=== PATIENT | female | born 1945 | race Asian ===

== ENCOUNTER 2018-12-01 09:35 | Emergency (ER) | payer OTHER ==
[~2018-12-01] VITALS: Ht 167.6 cm; Wt 82.6 kg
[2018-12-01 09:39] VITALS: BP 165/81; PULSE 85; RESP 17; Ht 167.6 cm; Wt 82.6 kg
[2018-12-01] MEDS ORDERED: DIPHTH/TET/ACEL PERTUSS (ADULT) 0.5 ML VIAL IM* ONE (10:00)
--- NOTE | 2018-12-01 10:28 | ERD ---
ER Documentation Chief Complaint Chief Complaint LAC ON RIGHT LATTER-DAY S/P FALL FROM BED THIS AM, NO KO HPI 73-year-old female presents with laceration to the right side of her forehead that occurred today when she actually fell from her bed and hit her head. No loss of consciousness. No vomiting. She takes aspirin but no other blood thinners. Unsure last tetanus vaccination. Pain is mild and she has mild dizziness. ROS All systems reviewed and are negative except as per history of present illness. Allergies Allergies: Coded Allergies: No Known Allergy (Unverified , 12/01/18) PMhx/Soc History of Surgery: Yes (Goiter removal, right breast sx, Hysterectomy) Anesthesia Reaction: No Hx Cardiac Disorders: Yes (HTN, Hyperlipidemia) Hx Alcohol Use: No Hx Substance Use: No Hx Tobacco Use: No Smoking Status: Never smoker FmHx Family History: No diabetes Physical Exam Vitals Vital Signs Date Temp Pulse Resp B/P (MAP) Pulse Ox O2 O2 Flow FiO2 Time Delivery Rate 12/01/18 97.6 85 17 165/81 98 09:39 (109) Physical Exam INITIAL VITAL SIGNS: Reviewed by me GENERAL: Awake, alert and oriented x 4, well appearing, nontoxic, speaking in full sentences. No acute distress HEAD: Atraumatic NECK: Supple. No masses. Full range of motion. No meningismus. No midline tenderness. EYES: EOMI. PERRL. EAR: No tenderness over the mastoids bilaterally. No exudates in the canals. TMs nonerythematous. RESPIRATORY: Clear to auscultation bilaterally. Symmetric chest wall rise. No wheezing or rales. No accessory muscle use. CV: Regular rate and rhythm. No murmurs, rubs, or gallops. BACK: No midline tenderness to palpation. No step-offs. SKIN: Abrasion to the right side of the upper forehead, no deep lacerations, no bleeding NEUROLOGIC: Normal mental status and speech. Face is symmetric. Moves all extremities equally. Motor and sensory distally intact. Normal coordination. Ambulates with a strong steady gait. Results 24 hrs Current Medications Medications Dose Sig/Jameson Start Time Status Last (Trade) Ordered Route PRN Stop Time Admin Dose Reason Admin Diphtheria/ 0.5 ml ONCE ONCE 12/01/18 DC 12/01/18 Tetanus/Acell IM* 10:00 8/9/19 10:14 Pertussis 10:01 (Adacel) Procedures/MDM Tetanus vaccination given. Laceration is superficial and is more of an abrasion and does not require any repair. CT is negative. Patient counseled regarding my diagnostic impression and care plan. Prior to discharge all questions answered. Pt agrees with treatment plan and understands strict return precautions. Pt is instructed to follow up with primary care provider within 24- 48 hours. Precautionary instructions provided including instructions to return to the ER if not improving or for any worsening or changing symptoms or concerns. Departure Diagnosis: Primary Impression: Head injury Condition: Stable Patient Instructions: HEAD INJURY with Wake-Up (Adult) Additional Instructions: Call your primary care doctor TOMORROW for an appointment during the next 1-2 days.See the doctor sooner or return here if your condition worsens before your appointment time. JAMISON PATEL PA-C Dec 01, 2018 10:28
== END 2018-12-01 10:45 | disposition home or self-care (01) ==
LOC: FTE 09:35
DX: S00.81XA Abrasion of other part of head, initial encounter (principal); I10 Essential (primary) hypertension; W06.XXXA Fall from bed, initial encounter; Y92.9 Unspecified place or not applicable
CPT/HCPCS: 70450; 90471; 90715; Z7502